=== PATIENT | female | born 1960 | race Caucasian/White ===

== ENCOUNTER 2017-01-12 10:17 | Emergency (ER) | payer SELFPAY ==
[2017-01-12] MEDS ORDERED: Morphine INJ* 4 MG/ML 1 ML SYRINGE IV ONE (11:07)
[2017-01-12] MEDS ORDERED: Ondansetron INJ* 2 MG/ML VIAL IV ONE (11:07)
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
--- NOTE | 2017-01-12 11:59 | RAD ---
INDICATION: Trauma. COMPARISON: There are no prior studies available for comparison. TECHNIQUE: Contiguous axial sections were obtained from the skull base through the T2 vertebra. Images were reconstructed in the sagittal and coronal planes. FINDINGS: The vertebra are in normal alignment. No prevertebral soft tissue swelling or fracture is seen. At the C4-C5 level there is mild posterior uncinate process spurring. No significant spinal canal or neural foraminal narrowing is seen. At the C5-C6 level there is mild posterior uncinate process spurring. No significant spinal canal or neural foraminal narrowing is seen. At the C6-C7 level there is minimal posterior uncinate process spurring. No significant spinal canal or neural foraminal narrowing is seen. IMPRESSION: 1. NO EVIDENCE FOR FRACTURE OR SUBLUXATION. 2. MILD CERVICAL SPONDYLOSIS.
--- NOTE | 2017-01-12 12:57 | RAD ---
HISTORY: Trauma, left rib pain COMPARISONS: None VIEWS: 5, Frontal view of the chest with frontal and oblique views of the left hemithorax FINDINGS: There is no displaced rib fracture or pneumothorax. The visualized lungs are clear. IMPRESSION: THERE IS NO DISPLACED RIB FRACTURE OR PNEUMOTHORAX
[2017-01-12] MEDS ORDERED: oxyCODONE/Acetamin 5/325 MG* TAB PO ONE (13:15)
[2017-01-12 13:42] VITALS: BP 151/58
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
== END 2017-01-12 13:41 | disposition home or self-care (01) ==
LOC: ED 10:17
DX: S06.0X9A Concussion with loss of consciousness of unspecified duration, initial encounter (principal); S20.219A Contusion of unspecified front wall of thorax, initial encounter; R07.9 Chest pain, unspecified; M54.9 Dorsalgia, unspecified; Z87.891 Personal history of nicotine dependence; R06.02 Shortness of breath; R42 Dizziness and giddiness; R41.3 Other amnesia; V49.9XXA Car occupant (driver) (passenger) injured in unspecified traffic accident, initial encounter; Y93.9 Activity, unspecified; Y92.9 Unspecified place or not applicable
CPT/HCPCS: 70450; 72125; 93005; 96374; 96375; 99283; A9270-GY; J2270; J2405

== ENCOUNTER 2018-10-04 17:09 | Emergency (ER) | payer OTHER ==
[2018-10-04] MEDS ORDERED: Aspirin 81 mg CHEW TAB* 81 MG TAB.CHEW PO ONE (18:52)
--- NOTE | 2018-10-04 18:52 | ED ---
Complex/Multi-Sys Presentation - HPI Summary HPI Summary: A 57 y/o F presents to ED with c/o waking up with a severe VALDEZ onset early this AM approx 0300. VALDEZ is mostly located posteriorly. Associated sx: non-productive cough, mid-sternal and non-radiating CP described as very heavy and tight, wheezing. Denies: fever, vision sx, n/v. She states this VALDEZ is different from her typical VALDEZ. Pt thinks she might have bronchitis. [facility]. Pt had a massage two days ago, the masseuse said pt had a "rigid" area above her R kidney. Pt c/o R-sided flank pain. PERSONAL CARE AID she took acetaminophen, 2x 500mg. Pt is under a lot of stress, her son had SI two months ago. Pt takes Synthroid, migraine (triptan) medication prn. No PMHx: COPD, asthma. Smokes occasionally, 5 cigs today. Pt uses inhaler when she get bronchitis. Pt's roommate had dx today PNA. No previous stress tests. Vitals at bedside: HR: 83 bpm, BP: 163/89. - History Of Current Complaint Chief Complaint: EDHeadache Time Seen by Provider: 10/04/18 18:27 Hx Obtained From: Patient Onset/Duration: Sudden Onset, Lasting Hours, Still Present Timing: Constant Severity Currently: Moderate Severity Initially: Moderate - 8 out of 10 Location: Pain At: - Posterior VALDEZ, also right flank . Character: Dull Aggravating Factor(s): Nothing Alleviating Factor(s): Nothing Associated Signs And Symptoms: Positive: Cough, Wheezing, Chest Pain, Other - neg: vision changes; positive: right flank pain. Negative: Nausea, Vomiting, Fever - Allergies/Home Medications Allergies/Adverse Reactions: Allergies Allergy/AdvReac Type Severity Reaction Status Date / Time aspirin Allergy Vomiting Verified 10/04/18 23:30 PMH/Surg Hx/FS Hx/Imm Hx Previously Healthy: No Endocrine/Hematology History: Reports: Hx Thyroid Disease - HYPOTHYROID Denies: Hx Diabetes Cardiovascular History: Denies: Hx Hypertension, Hx Pacemaker/ICD Respiratory History: Denies: Hx Asthma GI History: Denies: Hx Ulcer History: Denies: Hx Dialysis, Hx Renal Disease Sensory History: Denies: Hx Hearing Aid Neurological History: Reports: Hx Headaches, Other Neuro Impairments/Disorders - multiple sclerosis Psychiatric History: Denies: Hx Panic Disorder - Cancer History Cancer Type, Location and Year: Squamous Cell Skin, 2007 Hx Chemotherapy: No Hx Radiation Therapy: No - Surgical History Surgery Procedure, Year, and Place: appy, breast reduction, laproscopy, SKIN CA REMOVED FROM LEG, Infectious Disease History: No Infectious Disease History: Denies: Hx Clostridium Difficile, Hx Hepatitis, Hx Human Immunodeficiency Virus (HIV), Hx of Known/Suspected MRSA, Hx Shingles, Hx Tuberculosis, Hx Known/ Suspected VRE, Hx Known/Suspected VRSA, History Other Infectious Disease, Traveled Outside the [place] in Last 30 Days - [place] - Family History Known Family History: Positive: Unknown - ADOPTED - Social History Occupation: Employed Full-time Lives: With Family - son and roommate Alcohol Use: Rare Hx Substance Use: Yes Substance Use Type: Reports: Excessive Caffeine Substance Use Comment - Amount & Last Used: 120 OZ DIET COKE DAILY Hx Tobacco Use: Yes Smoking Status (MU): Former Smoker Type: Cigarettes Amount Used/How Often: 10 CIGS PER WK Length of Time of Smoking/Using Tobacco: 8 YRS Have You Smoked in the Last Year: Yes Review of Systems Negative: Fever Eyes: Negative Positive: Sore Throat Positive: Chest Pain - heaviness/tightness Positive: Cough, Other - pos: wheezing Negative: Vomiting, Nausea Positive: other - right "kidney" pain/right flank pain Skin: Negative Positive: Headache Psychological: Normal All Other Systems Reviewed And Are Negative: Yes Physical Exam - Summary Physical Exam Summary: Appearance: Well-appearing, moderate pain distress, well-nourished Skin: Warm, color reflects adequate perfusion, dry Head: Normal Head/Face inspection, atraumatic Eyes: Conjunctiva clear, PERRL, EOMI, no nystagmus ENT: post pharynx red, TM's clear Neck: Supple, no nodes, no JVD Respiratory: Expiratory wheezing throughout, no respiratory distress Cardio: RRR, No murmur, pulses normal, brisk capillary refill Abdomen: Soft, R-sided CVA tenderness, no masses, nontender, nondistended Bowel sounds: Present Musculoskeletal: Strength Intact/ROM intact, no calf tenderness, no edema. Psychological: Normal Neuro: Alert, muscle tone normal, no focal deficit, Motor 5/5, sensation intact , facial symmetry, speech clear and fluent Triage Information Reviewed: Yes Vital Signs On Initial Exam: Initial Vitals Temp Pulse Resp BP Pulse Ox 97.2 F 79 16 148/109 97 10/04/18 17:13 10/04/18 17:13 10/04/18 17:13 10/04/18 17:13 10/04/18 17:13 Vital Signs Reviewed: Yes Diagnostics - Vital Signs Vital Signs Temp Pulse Resp BP Pulse Ox 10/04/18 17:13 97.2 F 79 16 148/109 97 - Laboratory Result Diagrams: 10/04/18 18:43 10/04/18 18:43 Lab Statement: Any lab studies that have been ordered have been reviewed, and results considered in the medical decision making process. - Radiology CXR Radiology Interpretation Completed By: ED Physician Summary of Radiographic Findings: No definitive PNA. - EKG 18:23 Cardiac Rate: NL - 72 bpm EKG Rhythm: Sinus Rhythm ST Segment: Non-Specific Ectopy: None EKG Comparison: Other - ST T-wave inversion in V3 and non-specific ST wave changes, new throughout as compared to EKG on 01/12/17. Summary of EKG Findings: An EKG at [address], nml QTc, and nml axis. Re-Evaluation - Re-Evaluation 1 Re-Evaluation Time: 21:00 Change: Improved - breathing Comment: Pt still has a VALDEZ, sore throat, but no CP. Her breathing has improved, no wheezes, but she would like another breathing treatment. Second Eval Re-Evaluation Time: 21:15 Change: Improved Comment: VALDEZ better after aspirin, given per chest pain protocol. Breathing better. Chest pain better with fewer wheezes after albuterol neb. Son is with her, will drive her home. Will give hydrocodone for her VALDEZ and cough. Third Eval Re-Evaluation Time: 22:00 Change: Improved Comment: second troponin is negative. Second albuterol neb ordered. Pt agrees with discharge. Trying to find electronic way to [facility]. Unable, even after talking to [place] inpatient pharmacist in [place]. Will given paper RX's for Zpack, albuterol inhaler, prednisone and norco #12 tabs. Complex Multi-Symp Course/Dx Course Of Treatment: Pt is a 57 y/o F presenting with a severe, posterior VALDEZ onset early this AM approx 0300. This VALDEZ is different than her usual VALDEZ. Associated sx: non-productive cough, mid-sternal and non-radiating CP described as very heavy and tight, wheezing, R CVA tenderness. Pt thinks she might have bronchitis. PERSONAL CARE AID she took acetaminophen, 2x 500mg. Pt's roommate had dx today PNA. Lab work shows glucose: 170, TSH: 17, T4: 5.82, trop: 0.00, D-dimer is WNL. CXR shows no definitive PNA. Strep test is negative. At bedside, discussed at length her listed allergy to aspirin. Pt states a sensitivity to aspirin, NOT an allergy. She vomits blood when given multiple doses of aspirin, but is OK with a singular dose. Aspirin 324mg chewed given as part of chest pain protocol with pt's heavy chest pain and nonspecific ST-T wave changes. Pt was given 2 albuterol nebs with improvement in wheezes. CXR unofficial reading does not show pneumonia. Troponin x 2 is zero. Rapid strep is neg. UA has some cells. Culture sent. Pt's right flank pain more likely related to cough and bronchitis and wheezing, than urinary cause. Chest pain likely due to wheezing and cough, not cardiac. Pt given po azithromycin, and prednisone and norco, in addition to albuterol nebs, for dx: acute bronchitis/bronchospasm/ chest pain/cephalgia. Pt given copy of her EKG to [facility] with [facility], and is encouraged to follow up with stress test and cardiac evaluation, and to stop smoking. Allergies noted, high blood pressure noted. Pt medications reviewed this visit. - Diagnoses Provider Diagnoses: Chest pain, Bronchitis, Elevated blood pressure reading without diagnosis of hypertension, Cephalgia, Bronchospasm with bronchitis, acute, Right flank pain, Tobacco abuse disorder, Hypothyroidism Discharge - Sign-Out/Discharge Documenting (check all that apply): Patient Departure - DC - Discharge Plan Condition: Stable Disposition: HOME Patient Education Materials: Acute Bronchitis (ED), Acute Headache (ED) Referrals: Fior Mcdonnell [Primary Care Provider] - 2 Days Additional Instructions: Your labs don't show any significant abnormalities, except you are hypothyroid by the blood tests (Low thyroid) and you had an elevated glucose. You were given 2 duoneb treatments for wheezing and bronchitis. Dr. Cm read your chest xray and did not see pneumonia. We will contact you if the official reading is different than this. You were given 2 hydrocodone 5/325mg tabs for your headache at 9:15pm. You were also given prednisone 60mg orally for your wheezing. You had two troponin levels to evaluate your chest pain and they were both normal. Your urine showed white blood cells and red blood cells and has been sent for culture. We will notify you if you need an additional antibiotic based on the culture results which will be available in a few days. Your blood pressure reading today was 163/89, which is HYPERTENSIVE. Follow-up with your primary care provider within 4 weeks for blood pressure readings and further evaluation. You were given paper copies of 4 prescriptions for azithromycin 250mg #4, albuterol HFA inhaler 2 puffs q 4 hrs prn wheezing #1, prednisone 40mg qd x 5 days, and Echo 5/325mg 1-2 po q 4 hrs prn #12, MDD 6 that you may fill at a [place] pharmacy. RETURN TO THE EMERGENCY DEPARTMENT FOR CHANGING OR WORSENING SYMPTOMS - Billing Disposition and Condition Condition: STABLE Disposition: Home - Attestation Statements Document Initiated by Anne: Yes Documenting Scribe: Kali Harrison Provider For Whom Anne is Documenting (Include Credential): Dr. Nasima Cm MD Scribe Attestation: Kali Martínez, scribed for Dr. Nasima Cm MD on 10/09/18 at 1532. Scribe Documentation Reviewed: Yes Provider Attestation: The documentation as recorded by the Kali rivas accurately reflects the service I personally performed and the decisions made by , Dr. Nasima Cm MD
[2018-10-04] MEDS ORDERED: Albuterol/Ipratropium NEB.SOL* Albuterol 2.5 MG/Ipratropium 0.5 MG 3 ML INH ONE ×2 (18:55→21:11)
[2018-10-04] MEDS ORDERED: predniSONE TAB* 20 MG PO ONE (18:56)
[2018-10-04 19:00] LABS: ABS Basophils 0.1 10^3/ul (0-0.2); ABS Eosinophils 0.1 10^3/ul (0-0.6); ABS Lymphocytes 1.4 10^3/ul (1.0-4.8); ABS Monocytes 0.4 10^3/ul (0-0.8); ABS Neutrophils 4.4 10^3/ul (1.5-7.7); ABS Nucleated RBC 0 10^3/ul; Eosinophil % 1.1 % (0-6); Hematocrit 42 % (35-47); Hemoglobin 14.3 g/dl (12.0-16.0); Lymphocyte % 22.2 % (25-47); Mean Corpuscular HGB Conc 34 g/dl (31-36); Mean Corpuscular Hemoglobin 31 pg (27-31); Mean Corpuscular Volume 91 fL (80-97); Mean Platelet Volume 8.1 fL (7.4-10.4); Nucleated Red Blood Cells % 0.1; Platelet Count 238 10^3/ul (150-450); Red Blood Count 4.59 10^6/ul (4.00-5.40); Red Cell Distribution Width 16 % (10.5-15); White Blood Count 6.3 10^3/ul (3.5-10.8)
[2018-10-04 19:09] LABS: INR 0.93 (0.77-1.02)
[2018-10-04 19:16] LABS: EGFR Non-African American 71.4 (>60)
[2018-10-04] MEDS ORDERED: HYDROcodone/ACETAMIN 5-325 MG* 1 TAB PO ONE (21:11)
[2018-10-04 22:05] LABS: Urine Appearance Cloudy; Urine Blood 2+ (Negative); Urine Color Yellow; Urine Ketones Negative (Negative); Urine Protein Negative (Negative); Urine Red Blood Cell 2+(6-10/hpf) (Absent); Urine Specific Gravity 1.014 (1.010-1.030); Urine Urobilinogen Negative (Negative); Urine White Blood Cell 3+(>20/hpf) (Absent)
[2018-10-04] MEDS ORDERED: Azithromycin TAB* 250 MG PO ONE (22:12)
[2018-10-04 23:51] VITALS: BP 123/74
== END 2018-10-04 23:57 | disposition home or self-care (01) ==
LOC: ED 17:09
DX: R07.9 Chest pain, unspecified (principal); J40 Bronchitis, not specified as acute or chronic; R03.0 Elevated blood-pressure reading, without diagnosis of hypertension; R51 Headache; R05 Cough; R06.2 Wheezing; Z85.828 Personal history of other malignant neoplasm of skin; Z87.891 Personal history of nicotine dependence
CPT/HCPCS: 36415; 71045; 80053; 81003; 81015; 82550; 82553; 83605; 83735; 83880; 84145; 84436; 84443; 84484; 85025; 85379; 85610; 85730; 87086; 87651; 93005; 99283; A9270-GY; J7512